=== PATIENT | female | born 1980 | race Hispanic/Latino ===

== ENCOUNTER 2018-09-12 11:57 | Emergency (ER) | payer SELFPAY ==
[~2018-09-12] VITALS: Ht 152.4 cm; Wt 81.2 kg
--- NOTE | 2018-09-12 12:46 | Diagnostic Imaging Report ---
EXAMINATION: CHEST SINGLE (PORTABLE) INDICATION: Shortness of breath. Chest pain COMPARISON: None FINDINGS: TUBES and LINES: None. LUNGS: Lungs are well inflated. Lungs are clear. There is no evidence of pneumonia or pulmonary edema. PLEURA: No pleural effusion or pneumothorax. HEART AND MEDIASTINUM: The cardiomediastinal silhouette is unremarkable. BONES AND SOFT TISSUES: No acute osseous lesion. Soft tissues are unremarkable. UPPER ABDOMEN: No free air under the diaphragm. IMPRESSION: No acute thoracic abnormality. Signed by: Dr. Chong Null M.D. on 09/12/2018 12:43 PM
[2018-09-12 13:08] LABS: STREPTOCOCCUS GRP A ANTIGEN NEGATIVE (NEGATIVE)
[2018-09-12 13:18] LABS: INFLUENZAE A&B ANTIGEN (RAPID) NEGATIVE (NEGATIVE)
[2018-09-12 14:15] VITALS: BP 126/96
== END 2018-09-12 14:21 | disposition home or self-care (01) ==
LOC: ER 11:57
DX: R06.09 Other forms of dyspnea (principal); F41.1 Generalized anxiety disorder; F17.210 Nicotine dependence, cigarettes, uncomplicated
CPT/HCPCS: 71045; 83518; 87070; 87400; 99283

== ENCOUNTER 2022-11-09 21:47 | Emergency (ER) | payer SELFPAY ==
[~2022-11-09] VITALS: Ht 152.4 cm; Wt 80.7 kg
[~2022-11-09 21:47] MED LIST: DICYCLOMINE HCL20 MG PO; ONDANSETRON ODT4 MG PO; PANTOPRAZOLE SO40 MG PO
[2022-11-09 22:31] LABS: BASOPHILS % 0.5 % (0.0-1.0); EOSINOPHILS # (AUTO) 0.4 (0.0-0.4); EOSINOPHILS % 4.4 % (0.0-6.0); HEMATOCRIT 33.5 % (34.2-44.1); HEMOGLOBIN 10.3 g/dL (12.0-16.0); LYMPHOCYTES # (AUTO) 2.8 (1.0-3.2); LYMPHOCYTES % 32.9 % (18.0-39.1); MEAN CORPUSCULAR HEMOGLOBIN 25.6 pg (28-32); MEAN CORPUSCULAR HGB CONC 30.7 g/dL (31-35); MEAN CORPUSCULAR VOLUME 83.3 fL (81-99); MONOCYTES # (AUTO) 0.6 (0.2-0.8); MONOCYTES % 6.8 % (4.4-11.3); NEUTROPHILS # (AUTO) 4.7 (2.1-6.9); NEUTROPHILS % 55.2 % (38.7-80.0); PLATELET COUNT 338 x10e3/uL (140-360); RED BLOOD COUNT 4.02 x10e6/uL (3.6-5.1); RED CELL DISTRIBUTION WIDTH 19.3 % (11.7-14.4)
[2022-11-09 22:48] LABS: ALBUMIN 3.6 g/dL (3.5-5.0); ANION GAP 13.4 mmol/L (8-16); CALCIUM 8.6 mg/dL (8.4-10.2); CREATININE, SERUM 0.76 mg/dL (0.57-1.11); POTASSIUM 3.4 mmol/L (3.5-5.1)
[2022-11-09 22:55] LABS: CLARITY,URINE SL CLOUDY (CLEAR); COLOR,URINE AMBER (YELLOW); KETONES,URINE NEGATIVE (NEGATIVE); LEUKOCYTE ESTERASE ,URINE NEGATIVE (NEGATIVE); NITRITE,URINE NEGATIVE (NEGATIVE); PROTEIN,URINE DIPSTICK 1+ (NEGATIVE); URINE UROBILINOGEN 0.2 mg/dL (0.2 - 1)
[2022-11-09 22:57] LABS: AMORPHOUS SEDIMENT,URINE FEW (FEW); BACTERIA,URINE FEW /HPF; EPITHELIAL CELLS,URINE RARE /LPF; RBC,URINE >50 /HPF (0-5); WBC,URINE (MAN) 0-5 /HPF (0-5)
[2022-11-09] MEDS ORDERED: IOPAMIDOL 370 MG/ML 100 ML INFUS..BTL INJ ONE (23:33)
[2022-11-09] MEDS ORDERED: ONDANSETRON HCL INJ 2MG/ML 2ML 2 MG/ML VIAL IV STA (23:40)
[2022-11-09] MEDS ORDERED: Morphine 4mg INJECTION 4 MG/ML INJ IV STA (23:40)
[2022-11-10] MEDS ORDERED: ONDANSETRON ODT4 MG PO (01:04)
[2022-11-10] MEDS ORDERED: ULTRAM 50MG50 MG PO (01:04)
== END 2022-11-10 01:22 | disposition home or self-care (01) ==
LOC: ER 21:56
DX: N92.0 Excessive and frequent menstruation with regular cycle (principal); K62.5 Hemorrhage of anus and rectum; D64.9 Anemia, unspecified; K80.20 Calculus of gallbladder without cholecystitis without obstruction
CPT/HCPCS: 36415; 74177; 80053; 81001; 81025; 83690; 85025; 86850; 86900; 99284; J2270; J2405; Q9967